=== PATIENT | female | born 1935 | race Caucasian/White ===

== ENCOUNTER 2024-05-27 09:38 | Outpatient (CLI) | payer MEDICARE | END 2024-05-27 23:59 | disposition home or self-care (01) | LOC: RAD 09:38 | PROVIDERS: ATTEND Family Medicine Sports Medicine | DX: M19.011 Primary osteoarthritis, right shoulder (principal); M25.511 Pain in right shoulder; M25.411 Effusion, right shoulder; M77.9 Enthesopathy, unspecified | CPT/HCPCS: 73200; 76377 ==